=== PATIENT | male | born 2000 | race Caucasian/White ===

== ENCOUNTER 2024-07-14 08:28 | Outpatient (OUT) | payer OTHER, SELFPAY ==
--- NOTE | 2024-07-14 | XR_ITS ---
The [address] [address] Patient Name: DEN MORLEY MRN: [id number] date: 2000 Sex: M Assigned Patient Location: Current Patient Location: Accession/Order Number: [id number] Exam Date: 07/14/2024 08:57 Report Date: 07/15/2024 09:16 At the request of: RUDI NAVAS Procedure: XR elbow LT min 3V PROCEDURE: XR elbow LT min 3V COMPARISON: None. HISTORY: LEFT ELBOW PAIN FINDINGS: BONES:No fracture, acute abnormality, or significant arthropathy. SOFT TISSUES:Posterior soft tissue swelling EFFUSION:None visible. OTHER: Negative. XR/XR elbow LT min 3V IMPRESSION: Mild posterior soft tissue swelling, no acute fracture Electronically authenticated by: HONG BARRERA Date: 07/15/2024 09:16
== END 2024-07-14 08:29 | disposition home or self-care (01) ==
PROVIDERS: Visit Provider Orthopaedic Surgery
DX: M25.522 Pain in left elbow (principal)
CPT/HCPCS: 73080

== ENCOUNTER 2024-09-08 07:38 | Outpatient (OUT) | payer OTHER, SELFPAY ==
--- NOTE | 2024-09-08 | XR_ITS ---
The [address] [address] Patient Name: DEN MORLEY MRN: [id number] date: 2000 Sex: M Assigned Patient Location: Current Patient Location: Accession/Order Number: [id number] Exam Date: 09/08/2024 07:40 Report Date: 09/09/2024 11:09 At the request of: RUDI NAVAS Procedure: XR knee LT 4V PROCEDURE: XR knee LT 4V COMPARISON: None. HISTORY: LEFT KNEE PAIN FINDINGS: BONES:No fracture, acute abnormality, or significant arthropathy. SOFT TISSUES:Negative. No visible soft tissue swelling. EFFUSION:None visible. OTHER: Negative. XR/XR knee LT 4V IMPRESSION: No acute abnormality Electronically authenticated by: HONG BARRERA Date: 09/09/2024 11:09
== END 2024-09-08 07:39 | disposition home or self-care (01) ==
LOC: EC 07:39
PROVIDERS: Visit Provider Orthopaedic Surgery
DX: M25.562 Pain in left knee (principal)
CPT/HCPCS: 73564